=== PATIENT | male | born 1970 | race African-American/Black ===

== ENCOUNTER 2023-10-30 11:23 | Day surgery (SDC) | payer OTHER ==
[~2023-10-30] VITALS: Ht 185.4 cm; Wt 146.9 kg
[~2023-10-30 11:23] MED LIST: LR 1,000 ML IV SCH
[2023-10-30] MEDS ORDERED: NORVASC 10MG10 MG PO (12:03)
[2023-10-30] MEDS ORDERED: CYMBALTA 60MG60 MG PO (12:04)
[2023-10-30] MEDS ORDERED: LIPITOR20 MG PO (12:04)
[2023-10-30] MEDS ORDERED: GLUCOPHAGE500 MG/TAB PO (12:05)
[2023-10-30] MEDS ORDERED: CIALIS5 MG PO (12:05)
[2023-10-30] MEDS ORDERED: AMBIEN 5MG TABLE5 MG PO (12:06)
[2023-10-30] MEDS ORDERED: OZEMPIC SQ (12:14)
--- NOTE | 2023-10-30 12:35 | NUR ---
1231: CALLED AND INFORMED THAT PATIENT HAD OZEMPIC ON 10/29/23. STATED HE WAS AWARE OF THIS AND THAT THE PATIENT WOULD STILL HAVE THE PROCEDURE TODAY. 1233: JJ Bowman CRNA CALLED AND INFORMED OF PATIENT LAST DOSE OF OZEMPIC ON 10/29/23. INFORMED JJ THAT WAS AWARE OF THIS AND WANTED TO PROCEED WITH THE PROCEDURE TODAY.
[2023-10-30] MEDS ORDERED: Lidocaine 2% (20 MG/ML) 20 ML UROJET UR ONE (12:57)
[2023-10-30] MEDS ORDERED: Rocuronium 50 MG/5 ML Multi-Dose VIAL ONE (13:15)
[2023-10-30] MEDS ORDERED: fentaNYL 50 MCG/ML 2 ML VIAL ONE (13:15)
[2023-10-30] MEDS ORDERED: Lidocaine PF 2% (20 MG/ML) 5 ML VIAL ONE (13:16)
[2023-10-30] MEDS ORDERED: Glycopyrrolate 0.2 MG/ML 1 ML VIAL ONE (13:17)
[2023-10-30] MEDS ORDERED: dexAMETHasone 10 MG/ML VIAL ONE (13:17)
[2023-10-30] MEDS ORDERED: Ondansetron 4 MG/2 ML VIAL ONE (13:17)
[2023-10-30] MEDS ORDERED: NS 0 ML IV ONE (13:17)
== END 2023-10-30 13:52 | disposition home or self-care (01) ==
LOC: SDCO 11:23
DX: N52.8 Other male erectile dysfunction (principal); Z53.8 Procedure and treatment not carried out for other reasons; R35.1 Nocturia; R31.0 Gross hematuria; G47.33 Obstructive sleep apnea (adult) (pediatric); E11.9 Type 2 diabetes mellitus without complications; Z79.85 Long-term (current) use of injectable non-insulin antidiabetic drugs
CPT/HCPCS: J0690; J1100; J2405; J2704; J3010; J7120